=== PATIENT | female | born 1935 | race Caucasian/White ===

== ENCOUNTER 2017-07-05 22:43 | Emergency (ER) | payer OTHER, BC ==
[2017-07-05 22:58] VITALS: BMI 24.0
--- NOTE | 2017-07-05 23:19 | PDOC ---
History of Present Illness <Quyen Alexander - Last Filed: 07/06/17 00:49> - General History Source: Family (son) Exam Limitations: Other (AMS) - History of Present Illness Initial Comments: 07/06/17 00:00 The patient is a 82 year old female with a significant PMH of chronic pain syndrome, depression, overactive bladder, hypertension, gait abnormality, history of lymphoma (in remission), brain bleed, lung cancer, stroke, currently on oxycontin, a resident of [facility], presents to the emergency department via EMS with altered mental status and possible oxycontin overdose. The son is at bedside and providing most of the history. As per the son, the patient has been acting weird today. The son states the patient normally ambulates on her own or with minimal assistance. The son is unsure if the patient is currently on blood thinners. Allergies: NKA Social history: No reported alcohol drug, or cigarette use. PCP: Dr. Beltrán <Dayanara Laughlin - Last Filed: 07/06/17 01:07> - General Chief Complaint: Altered Mental Status Stated Complaint: SICK Time Seen by Provider: 07/05/17 22:54 Past History - Suicide/Smoking/Psychosocial Hx Smoking History: Unknown if ever smoked Have you smoked in the past 12 months: No Information on smoking cessation initiated: No Hx Alcohol Use: No Drug/Substance Use Hx: No <Quyen Alexander - Last Filed: 07/06/17 00:49> <Dayanara Laughlin - Last Filed: 07/06/17 01:07> - Past Medical History Allergies/Adverse Reactions: Allergies Allergy/AdvReac Type Severity Reaction Status Date / Time No Known Allergies Allergy Verified 07/05/17 22:54 Home Medications: Ambulatory Orders Unobtainable [Unobtainable] 07/06/17 Review of Systems - Review of Systems Able to Perform ROS?: No (AMS) <Dayanara Laughlin - Last Filed: 07/06/17 01:07> *Physical Exam - Vital Signs Last Vital Signs Temp Pulse Resp BP Pulse Ox 99.3 F 68 14 104/48 98 07/05/17 22:55 07/05/17 22:55 07/05/17 22:55 07/05/17 22:55 07/05/17 22:55 <Quyen Alexander - Last Filed: 07/06/17 00:49> - Vital Signs Last Vital Signs Temp Pulse Resp BP Pulse Ox 99.3 F 68 14 104/48 98 07/05/17 22:55 07/05/17 22:55 07/05/17 22:55 07/05/17 22:55 07/05/17 22:55 - Physical Exam Comments: 07/06/17 00:02 GENERAL: Awake, alert, and fully oriented, in no acute distress HEAD: No signs of trauma EYES: PERRLA, EOMI, sclera anicteric, conjunctiva clear ENT: Auricles normal inspection, hearing grossly normal, nares patent, oropharynx clear without exudates. Moist mucosa NECK: Normal ROM, supple, no lymphadenopathy, JVD, or masses LUNGS: Breath sounds equal, clear to auscultation bilaterally. No wheezes, and no crackles HEART: Regular rate and rhythm, normal S1 and S2, no murmurs, rubs or gallops ABDOMEN: Soft, nontender, normoactive bowel sounds. No guarding, no rebound. No masses EXTREMITIES: Normal range of motion, no edema. No clubbing or cyanosis. No cords, erythema, or tenderness NEUROLOGICAL: Cranial nerves II through XII grossly intact. Normal speech, normal gait SKIN: Warm, Dry, normal turgor, no rashes or lesions noted. <Dayanara Laughlin - Last Filed: 07/06/17 01:07> ED Treatment Course - LABORATORY CBC & Chemistry Diagram: 07/05/17 23:33 07/05/17 23:33 <Quyen Alexander - Last Filed: 07/06/17 00:49> - LABORATORY CBC & Chemistry Diagram: 07/05/17 23:33 07/05/17 23:33 - ADDITIONAL ORDERS Additional order review: 07/05/17 23:33 RBC 3.60 MCV 95.0 MCHC 34.2 RDW 13.3 MPV 7.9 Neutrophils % 52.2 Lymphocytes % 32.2 Monocytes % 13.5 H Eosinophils % 1.1 Basophils % 1.0 <Dayanara Laughlin - Last Filed: 07/06/17 01:07> Medical Decision Making - Medical Decision Making 07/06/17 00:19 Patient Name: PRESLEY MAYS THIS IS A PRELIMINARY REPORT FROM [facility] DATE OF SERVICE: 2017-07-05 23:45:50 IMAGES: 156 EXAM: HEAD CT WITHOUT CONTRAST HISTORY: Altered mental status COMPARISON: None. FINDINGS: Positive for a 4.0 cm x 3.7 cm acute right frontal parenchymal hemorrhage with surrounding edema. Mass effect impresses on the right frontal horn. No shift or herniation. Old left parietal infarct. Chronic microvascular changes in the cerebral white matter Osseous structures are intact. 07/06/17 00:20 CVA patient was auto accepted to the [facility] ER. Dr. Saenz accepted the patient to [facility] ER Decision to send patient to the ER at [facility], as they can get MRA/MRI today and neurosurg is there 07/06/17 00:25 Neurosurg here has not responded to page. And I'm not leaving message on his cell phone. 07/06/17 00:49 Pt's neurologist is Dr. Shemar Zapata at [facility] ; his emergency pager is [phone] He tells me that pt has a hx of narcotic abuse, but that doesn't really affect her at this point much, He mentioned that she may have amyloid angiopathy or a vasculopathy that may be resulting in recurrent bleeds for the patient. <Quyen Alexander - Last Filed: 07/06/17 00:49> *DC/Admit/Observation/Transfer - Transfer to Acute Care Facility Receiving Facility: [facility]. (Dr. Saenz accepted the patient.) <Quyen Alexander - Last Filed: 07/06/17 00:49> - Attestations Scribe Attestion: 07/06/17 00:03 Documentation prepared by Dayanara Laughlin, acting as medical csr for Quyen Alexander MD. <Dayanara Laughlin - Last Filed: 07/06/17 01:07> Diagnosis at time of Disposition: Altered mental state, Hemorrhagic stroke - Discharge Dispostion Disposition: TRANSFER ACUTE CARE/OTHER HOSP Condition at time of disposition: Guarded - Patient Instructions - Post Discharge Activity
[2017-07-05 23:44] LABS: EOS % 1.1 % (0-4.5); HEMATOCRIT 34.2 % (32.4-45.2); HEMOGLOBIN 11.7 GM/dL (10.7-15.3); LYMPH % 32.2 % (8-40); MCH 32.5 pg (25.7-33.7); MCHC 34.2 g/dl (32.0-36.0); MEAN PLT VOLUME 7.9 fl (7.5-11.1); MONO % 13.5 % (3.8-10.2); NEUT % 52.2 % (42.8-82.8); PLATELET COUNT 188 K/MM3 (134-434); RDW 13.3 % (11.6-15.6); WHITE BLOOD COUNT 4.6 K/mm3 (4.0-10.0)
[2017-07-06 00:03] LABS: INR 1.03 (0.82-1.09); PROTHROMBIN TIME (PATIENT) 11.6 SEC (9.98-11.88)
--- NOTE | 2017-07-06 00:16 | PDOC ---
NIH Stroke Scale - Initial Evaluation Level of consciousness: Alert Ask patient the month and their age: Both incorrect Ask patient to open & close eyes; make fist and let go: Obeys both correctly Best gaze (horizontal eye movement): Normal Visual field testing: No visual field loss Facial paresis (Show teeth/raise eyebrows/close eyes tight): Normal symmetrical movement Motor Function: Left Arm: Normal Motor Function: Right Arm: Normal (extends arm 90 (or 45) degrees for 10 seconds without drift Motor Function: Left Leg: Normal (extends leg 30 degrees for 5 seconds without drift) Motor Function: Right Leg: Normal (extends leg 30 degrees for 5 seconds without drift) Limb Ataxia: No ataxia Sensory(Use pinprick test arms,legs,trunk,face/side to side): Normal Best language (Describe picture, name items, read sentences): No Aphasia Dysarthria (read several words): Normal articulation Extinction and Inattention: No abnormality - Total Score NIH Stroke Scale Score: 2
[2017-07-06 00:22] LABS: ALBUMIN 3.6 g/dl (3.4-5.0); ALK PHOS 80 U/L (45-117); ANION GAP 7 (8-16); BILIRUBIN,TOTAL 0.5 mg/dL (0.2-1.0); BLOOD UREA NITROGEN 21 mg/dL (7-18); CALCIUM 8.5 mg/dL (8.5-10.1); CHLORIDE 105 mmol/L (98-107); CO2 28 mmol/L (21-32); CREATININE 0.8 mg/dL (0.55-1.02); GLUCOSE,RANDOM 98 mg/dL (74-106); POTASSIUM 4.2 mmol/L (3.5-5.1); SGOT/AST 12 U/L (15-37); SGPT/ALT 15 U/L (12-78); SODIUM 140 mmol/L (136-145)
[2017-07-06 01:10] VITALS: BP 104/55; PULSE 72
[2017-07-06 01:20] VITALS: TEMP 98
== END 2017-07-06 01:00 | disposition short-term general hospital (02) ==
LOC: JER 22:43
DX: I61.9 Nontraumatic intracerebral hemorrhage, unspecified (principal); I10 Essential (primary) hypertension; F32.9 Major depressive disorder, single episode, unspecified; G89.4 Chronic pain syndrome; R26.9 Unspecified abnormalities of gait and mobility; Z86.73 Personal history of transient ischemic attack (TIA), and cerebral infarction without residual deficits; Z85.118 Personal history of other malignant neoplasm of bronchus and lung
CPT/HCPCS: 36415; 70450-TC; 71045-TC-FY; 80053; 85025; 85610; 99282-25